=== PATIENT | female | born 1980 | race Caucasian/White ===

== ENCOUNTER 2018-07-30 06:00 | Inpatient (IN) | payer BC ==
[2018-07-30] VITALS (40 sets, daily range): BP systolic 98–139; BP diastolic 4–91
[~2018-07-30 06:00] MED LIST: PREN-53 PO
--- OUTSIDE RECORDS SUMMARY | 2018-07-30 06:08 | XMS REPORT | Continuity of Care Document ---
Author Author [facility] Address Unknown Phone Unavailable Allergies Active Description Code Type Severity Reaction Onset Reported/Identified Relationship to Patient Clinical Status Yes No Known Drug Allergies [id number] Drug Allergy Unknown N/A 07/02/2018 Medications There is no data. Problems Date Dx Coded Attending Type Code Diagnosis Diagnosed By 03/13/2018 FRANCES OLGUIN MD, Ot Z36.89 ENCOUNTER FOR OTHER SPECIFIED 03/13/2018 FRANCES OLGUIN MD, Ot Z3A.20 20 WEEKS GESTATION OF 03/18/2018 FRANCES OLGUIN MD, Ot Z36.89 ENCOUNTER FOR OTHER SPECIFIED 03/18/2018 FRANCES OLGUIN MD, Ot Z3A.20 20 WEEKS GESTATION OF 03/27/2018 FRANCES OLGUIN MD, Ot Z36.89 ENCOUNTER FOR OTHER SPECIFIED 03/27/2018 FRANCES OLGUIN MD, Ot Z3A.20 20 WEEKS GESTATION OF 07/02/2018 FRANCES OLGUIN MD, Ot O99.89 OTH DISEASES AND CONDITIONS COMPL PREG/C 07/02/2018 FRANCES OLGUIN MD, Ot R10.2 PELVIC AND PERINEAL PAIN 07/02/2018 FRANCES OLGUIN MD, Ot Z3A.36 36 WEEKS GESTATION OF 07/05/2018 FRANCES OLGUIN MD, Ot O99.89 OTH DISEASES AND CONDITIONS COMPL PREG/C 07/05/2018 FRANCES OLGUIN MD, Ot Z3A.36 36 WEEKS GESTATION OF Procedures There is no data. Results There is no data. Encounters ACCT No. Visit Date/Time Discharge Status Pt. Type Provider Facility Loc./Unit Complaint [id number] 02/04/2015 09:23:18 02/04/2015 23:59:59 CLS Outpatient Verito Sol [id number] 10/02/2014 09:14:58 10/02/2014 23:59:59 CLS Outpatient Emily Barrios [id number] 09/28/2014 10:47:17 09/28/2014 23:59:59 CLS Outpatient Emily Barrios [id number] 08/07/2014 09:59:45 08/07/2014 23:59:59 CLS Outpatient Verito Sol [id number] 07/02/2018 17:52:00 07/02/2018 19:00:00 DIS Outpatient FRANCES OLGUIN MD [facility] WSo CONTRACTIONS [id number] 03/12/2018 11:53:00 03/12/2018 23:59:59 CLS Outpatient FRANCES OLGUIN MD [facility] RAD SURVEY
[2018-07-30] MEDS ORDERED: OXYTOCIN/NORMAL SALINE 500 ML IV ONE (07:16)
[2018-07-30] MEDS ORDERED: D5 LR IV SOLUTION 1,000 ML IV ONE (07:17)
[2018-07-30] MEDS ORDERED: D5 LR IV SOLUTION 1,000 ML IV SCH (07:27)
[2018-07-30] MEDS ORDERED: OXYTOCIN/NORMAL SALINE 500 ML IV SCH ×2 (07:27→13:47)
--- NOTE | 2018-07-30 07:27 | History & Physical-OB ---
OB - Chief Complaint & HPI Date/Time Date of Admission: Date of Admission: Jul 30, 2018 at 06:04 Time Seen by Provider: 07:10 Chief Complaint/History OB-Reason for Admission/Chief: Induction of Labor Hx : 3 Hx Para: 3 Expected Date of Delivery: Jul 28, 2018 Gestational Age in Weeks: 40 Gestational Age in Days: 2 Admission Nurse Assessment Rev: Yes History of Labs GBS negative Allergies and Home Medications Allergies Coded Allergies: No Known Drug Allergies (Unverified , 07/02/18) Home Medications Gvb212/Iron Fumarate/FA/Dss 1 Each Tablet, 1 EACH PO DAILY, (Reported) Patient Home Medication List Home Medication List Reviewed: Yes OB - History Hx of Present Care: Yes Ultrasounds: Normal mid trimester US Obstetrical Complications: None Medical Complications: None Patient Past Medical History no chronic medical problems OB - Admission Exam Physical Exam HEENT: Moist Membranes Heart: Rhythm Normal Lungs: Clear Abdomen: Gravid Cervical Dilatation: 1cm Effacement: 50% Station: -3 Membranes: Intact Heart Rate: 140's Accelerations: Accelerations Present Short Term Variability: Present Care Transition Coordinator Variability: Average (6-25) Contractions on Admission: >10 Minutes Apart Intensity: Mild Burgess Scoring Tool (Modified) Dilation (cm): 1-2cm (1) Effacement (%): 31-51% (1) Descent/Station: -3 (0) Cervix Consistency: Soft (2) Cervix Position: Posterior (0) Add 1 point for: Each previous vaginal delivery (1) Burgess Score: 6 OB - Assessment/Plan/Diagnosis Assessment Assessment: induction of labor Admission Dx 1. IUP at 40 weeks. Admission Status: Inpatient Order (span 2 midnights) Reason for Inpatient Admission: L&D Plan Plan: Induction Induction Method: AROM Other Plan -epidural planned -pitocin as necessary FRANCES OLGUIN MD Jul 30, 2018 07:27
[2018-07-30 07:35] LABS: BASOPHILS % (AUTO) 0 % (0-10); EOSINOPHILS # (AUTO) 0.1 10^3/uL (0.0-0.3); EOSINOPHILS % (AUTO) 1 % (0-10); HEMATOCRIT 35 % (35-52); HEMOGLOBIN 11.7 G/DL (11.5-16.0); LYMPHOCYTES # (AUTO) 1.3 X 10^3 (1.0-4.0); LYMPHOCYTES % (AUTO) 18 % (12-44); MEAN CORPUSCULAR HEMOGLOBIN 30 PG (25-34); MEAN CORPUSCULAR HGB CONC 34 G/DL (32-36); MEAN CORPUSCULAR VOLUME 89 FL (80-99); MEAN PLATELET VOLUME 11.7 FL (7.4-10.4); MONOCYTES # (AUTO) 0.5 X 10^3 (0.0-1.0); MONOCYTES % (AUTO) 7 % (0-12); NEUTROPHILS # (AUTO) 5.3 X 10^3 (1.8-7.8); NEUTROPHILS % (AUTO) 73 % (42-75); PLATELET COUNT 174 10^3/uL (130-400); RED BLOOD COUNT 3.92 10^6/uL (4.35-5.85); RED CELL DISTRIBUTION WIDTH 13.4 % (10.0-14.5); WHITE BLOOD COUNT 7.2 10^3/uL (4.3-11.0)
[2018-07-30] MEDS ORDERED: LACTATED RINGERS 1,000 ML IV ONE ×2 (08:43→10:10)
[2018-07-30] MEDS ORDERED: SUFENTA 0.6MCG/ML BUPIVA 0.125 100 ML ONE (09:23)
[2018-07-30] MEDS ORDERED: fentaNYL INJECTION 100 MCG/2 ML AMP ONE (09:40)
[2018-07-30] MEDS ORDERED: BUPIVACAINE 0.25% 30 ML (SENSORCAINE) VIAL ONE (09:40)
[2018-07-30] MEDS ORDERED: EPIDURAL (SUFENTA 0.6MCG/ML BUPIVA 0.125%) 100 ML BAG EPI SCH (10:15)
[2018-07-30] MEDS ORDERED: NALOXONE 0.4 MG/ML 1 ML (NARCAN) VIAL IV PRN (10:15)
[2018-07-30] MEDS ORDERED: CATHETER FLUSH 10 ML SYR IV PRN (10:15)
--- NOTE | 2018-07-30 13:51 | OB Labor & Delivery Record ---
L&D History Date of Service Date of Service: Jul 30, 2018 History Expected Date of Delivery: Jul 27, 2018 Gestational Age in Weeks: 40 Hx : 3 Hx Para: 3 Complications Events: Routine care Operative Indications (Cesarea: N/A-Vaginal Delivery Intrapartal Events: None Other Complications slight meconium L&D Stage1 Stage One Onset of Labor - Date: Jul 30, 2018 Onset of Labor - Time: 07:10 Monitors and Tracing Monitor Mode: Internal Heart Rate: 130 Monitor Accelerations: Uniform Monitor Decelerations: Variable Station: -1 Senior Living Variability: Average (6-10) Short Term Variability: Present Presentation: Vertex Vital Signs VS - Last 72 Hours, by Label 07/30/18 07/30/18 07/30/18 07/30/18 07:15 07:25 07:40 07:55 Temp 98.0 Pulse 75 79 75 66 Resp 18 18 18 18 B/P (MAP) 115/76 (89) 115/77 (90) 121/71 (88) 113/72 (86) O2 Delivery Room Air Room Air Room Air Room Air 07/30/18 07/30/18 07/30/18 07/30/18 08:10 08:25 08:40 08:55 Pulse 77 81 78 65 Resp 18 18 18 18 B/P (MAP) 111/71 (84) 116/67 (83) 139/91 (107) 130/66 (87) O2 Delivery Room Air Room Air Room Air Room Air 07/30/18 07/30/18 07/30/18 07/30/18 09:10 09:25 09:40 09:45 Pulse 64 63 75 76 Resp 18 18 18 18 B/P (MAP) 115/69 (84) 113/67 (82) 121/72 (88) 129/73 (91) Pulse Ox 98 O2 Delivery Room Air Room Air Room Air Room Air 07/30/18 07/30/18 07/30/18 07/30/18 09:50 09:55 10:00 10:05 Pulse 83 75 69 68 Resp 18 18 18 18 B/P (MAP) 123/81 (95) 119/64 (82) 112/64 (80) Pulse Ox 100 100 99 100 O2 Delivery Room Air Room Air Room Air Room Air 07/30/18 07/30/18 07/30/18 9/18/18 10:10 10:15 10:20 10:25 Temp 98.5 Pulse 64 76 75 69 Resp 18 20 20 18 B/P (MAP) 112/57 (75) 111/65 (80) 100/55 (70) 106/54 (71) Pulse Ox 98 98 94 O2 Delivery Room Air Room Air Room Air Room Air 07/30/18 07/30/18 07/30/18 07/30/18 10:30 10:40 11:00 11:15 Pulse 62 67 56 57 Resp 18 18 18 18 B/P (MAP) 117/59 (78) 104/59 (74) 99/57 (71) Pulse Ox 98 98 97 97 O2 Delivery Room Air Room Air Room Air 07/30/18 07/30/18 07/30/18 07/30/18 11:30 11:45 12:00 12:15 Pulse 60 62 59 59 Resp 18 18 B/P (MAP) 102/58 (73) 98/59 (72) 111/63 (79) 118/64 (82) Pulse Ox 98 99 99 100 O2 Delivery Room Air Room Air Room Air Room Air Signs of Distress by FHT Signs of Distress no Rupture of Membranes Spontaneous Ruture of Membrane: No Amniotic Membrane Rupture Time: 0714 Amniotic Membrane Fluid Desc.: Meconium Stained Induction/Anesthesia Epidural Cath Placement - Time: 0955 L&D Stage2 Stage Two Stage II Date: Jul 30, 2018 Stage II Time: 01:19 Monitors and Tracing Monitor Mode: Internal Heart Rate: 130 Monitor Accelerations: Uniform Monitor Decelerations: Late (only 1 episode otherswise normal reactive) Alteration Tailor Apprentice Variability: Average (6-10) Short Term Variability: Present Position: Left Occiput Anterior Signs of Distress by FHT Signs of Distress no Cord Descript/Complications Cord Vessel Description: 3 Vessels Delivery Type Delivery Method: Spontaneous Vaginal Anterior Shoulder: Left Episiotomy/Perineal Laceration Laceraction(s)/Extensions: No Condition of Delivery 1 minute Comment: 8 5 minute Comment: 9 Condition of Condition of Infant: Living Exam: No Observed Abnormalities Resuscitation Resuscitation: N/A - Spontaneous Resp L&D Stage3 Stage Three Stage III Date: Jul 30, 2018 Stage III Time: 01:23 Pictocin Pitocin Administration mu/min: 6 Pitocin ml/hr: 6 Pitocin Administration Comment: pitocin increased Placenta Delivery Placenta Delivery: Spontaneous Delivery Summary Summary Estimated blood loss (mL): 150 Condition of Delivery Examined: Cervix Examined Post Hemorrhage: No Intervention Required none other than fundal massage FRANCES OLGUIN MD Jul 30, 2018 13:51
[2018-07-30] MEDS ORDERED: CATHETER FLUSH 10 ML SYR IV SCH (14:00)
[2018-07-30] MEDS ORDERED: WITCH HAZEL(TUCKS) 40 EA JAR TOP PRN (14:00)
[2018-07-30] MEDS ORDERED: TETANUS,DIPTH,PERTUSS P/F (BOOSTRIX) 0.5 ML VIAL IM ONE (14:00)
[2018-07-30] MEDS ORDERED: BENZOCAINE/MENTHOL (DERMOPLAST) 56 ML CAN TP PRN (14:00)
[2018-07-30] MEDS ORDERED: HYDROcodone/APAP 5 MG/325 MG (LORTAB) TAB PO PRN (14:00)
[2018-07-30] MEDS ORDERED: MEASLES,MUMPS,RUBELLA 1 EA INJ SQ ONE (14:00)
[2018-07-30] MEDS ORDERED: FLU QUADRIvalent (5+ YOA) 2018-2019 (AFLURIA) 0.5 ML IM ONE (15:30)
[2018-07-30] MEDS: IBUPROFEN 600 MG (MOTRIN) TAB PO SCH ×2 (15:40→21:38)
[2018-07-30] MEDS: CATHETER FLUSH 10 ML SYR IV SCH ×2 (20:40→21:39)
[2018-07-31] VITALS: BP 99/59
[2018-07-31] MEDS: IBUPROFEN 600 MG (MOTRIN) TAB PO SCH ×2 (03:30→11:37)
[2018-07-31 04:00] VITALS: BP 113/67
[2018-07-31] MEDS: CATHETER FLUSH 10 ML SYR IV SCH (06:39)
[2018-07-31 08:10] VITALS: BP 103/66
--- NOTE | 2018-07-31 10:36 | Discharge Inst-Women's Service ---
Discharge Inst-Women's Serv Depart Medication/Instructions New, Converted or Re-Newed RX: Other Consults/Follow Up Additional Follow Up: Yes (Dr Olguin in 6 weeks) Activity Activity: Activity as Tolerated Driving Instructions: You May Drive Nothing Inside Vagina: No [place] (for 6 weeks.) Diet Discharge Diet: Regular Diet Return to The Hospital For: as below Symptoms to Report to : Bleeding Excessive, Pain Increased, Fever Over 101 Degrees F, Vaginal Discharge Foul For Any Problems or Questions: Contact Your Physician FRANCES OLGUIN MD Jul 31, 2018 10:36
--- NOTE | 2018-07-31 10:54 | Discharge Summary ---
Diagnosis/Chief Complaint Date of Admission Jul 30, 2018 at 06:04 Date of Discharge July 30, 2018 Discharge Date: Jul 31, 2018 Discharge Time: 07:50 Admission Diagnosis Admission Diagnosis 1. IUP at 40 weeks. Discharge Diagnosis 1. IUP at 40 weeks. Reason Hospital Visit 37-year-old multiparous female currently at 40 weeks gestation presents for induction of labor. She was noted to have an uncomplicated course. Her GBS status is negative. She is induced due to term gestation and physical location from home with history of quick deliveries. Discharge Summary-OBS Procedures 1. Epidural per anesthesia 2. Discharge Physical Examination Allergies: Coded Allergies: No Known Drug Allergies (Unverified , 07/02/18) Vitals & I&Os Vital Signs Date Time Temp Pulse Resp B/P (MAP) Pulse Ox O2 Delivery O2 Flow Rate FiO2 07/31/18 04:00 97.9 85 18 113/67 (82) 99 Room Air General Appearance: No Acute Distress Respiratory: Clear to Auscultation Cardiovascular: Regular Rate Abdominal: Soft Skin: No Rashes Hospital Course Following admission in the morning of July 30 she underwent amniotomy with placement of scalp electrode. Fluid was noted to be clear. She did receive epidural per anesthesia. Patient tolerated labor well and required Pitocin augmentation and low-dose. Ultimately she went on to deliver a term viable male at 11 30 with Apgars of 8 at 1 minute and 9 at 5 minutes. There was no episiotomy. See labor and delivery note for full details. Following delivery patient underwent routine care orders. She was noted to have hemoglobin on the day of admission of 11.7. Patient was ambulatory and was without any shortness of breath. There was no leg pain. She tolerated regular diet and was felt ready for dismissal during the afternoon of July 31, 2018. She will follow up in 6 weeks. Discharge Instructions to patient/family Please see electronic discharge instructions given to patient. Discharge Medications Reviewed and agree with Discharge Medication list on patient's Discharge Instruction sheet Clinical Quality Measures DVT/VTE Risk/Contraindication: Risk Factor Score Per Nursin RFS Level Per Nursing on Admit: 1=Low/No VTE PPX FRANCES OLGUIN MD Jul 31, 2018 10:54
--- NOTE | 2018-07-31 15:22 | Anesthesia-Regional Post-Op ---
Regional Patient Condition Mental Status: Alert, Oriented x3 Circulation: Same as Pre-Op Headache: Absent Sensation: Full Recovery Motor Block: Absent Post Op Complications Complications None Follow Up Care/Instructions Patient Instructions None needed. Anesthesia/Patient Condition Patient is doing well, no complaints, stable vital signs, no apparent adverse anesthesia problems. CLAUDIA AG DO Jul 31, 2018 15:22
== END 2018-07-31 14:30 | disposition home or self-care (01) | DRG 775 ==
LOC: LDRP 06:04
PROVIDERS: ADMIT Family Medicine; ATTEND Family Medicine
PROC: 10E0XZZ Delivery of Products of Conception, External Approach (ICD-10-PCS; principal; 2018-07-30)
PROC: 10907ZC Drainage of Amniotic Fluid, Therapeutic from Products of Conception, Via Natural or Artificial Opening (ICD-10-PCS; 2018-07-30)
DX: O77.0 Labor and delivery complicated by meconium in amniotic fluid (principal); Z3A.40 40 weeks gestation of pregnancy; Z37.0 Single live birth
CPT/HCPCS: 36415; 85025; 86850; 86900; 86901

== ENCOUNTER → 2021-07-01 | Outpatient (CLI) | payer OTHER ==
--- NOTE | 2021-07-01 10:37 | Diagnostic Imaging Report ---
PROCEDURE: US OB SINGLE FETUS <14 WKS. TECHNIQUE: Multiple real-time grayscale images were obtained over the gravid uterus in various projections. INDICATION: Evaluate viability. There is an intrauterine gestational sac containing a pole consistent with 10 weeks 3 days gestation. heart rate was recorded at 165 bpm. Placenta appears to be developing anteriorly. No rosario-gestational sac hemorrhage is detected. Adnexal evaluation demonstrates 2.2 cm corpus luteal cyst on the left. There is no free fluid. IMPRESSION: Single live IUP 10 weeks 3 days gestation with an estimated date of confinement sonographically of 01/24/2022. Dictated by: Dictated on workstation # [id number]
== END ==
LOC: RAD 10:00
PROVIDERS: ATTEND Obstetrics & Gynecology
DX: O36.80X9 Pregnancy with inconclusive fetal viability, other fetus (principal); Z3A.10 10 weeks gestation of pregnancy
CPT/HCPCS: 76801

== ENCOUNTER → 2021-09-28 | Outpatient (CLI) | payer OTHER ==
--- NOTE | 2021-09-28 12:52 | Diagnostic Imaging Report ---
INDICATION: Supervision of normal . Anatomy scan. TECHNIQUE: Multiple real-time grayscale images were obtained over the gravid uterus. COMPARISON: 07/01/2021. FINDINGS: CLINICAL DATES: Gestational age 23 weeks, 1 days, with an GLORIA of 01/24/2022 Number: Single live intrauterine Presentation: Cephalic Placenta: Posterior and low-lying. Amniotic Fluid: ROBERT is within normal limits. Heart Rate: 142 bpm Cerebellum: visualized Lateral ventricles: visualized Cavum septum pellucidum: visualized Nasal Bone: visualized Face: visualized Stomach: visualized Kidneys: visualized Bladder: visualized Three vessel cord: visualized Cord insertion: visualized 4 chamber heart: visualized outflow tracts: visualized Spine, upper: visualized Spine, lower: visualized Upper extremities: visualized Lower extremities: visualized Hands: Visualized, however not all fingers are well seen. Feet: Visualized, however not all toes are well seen. Cervical length measures 5.5 cm. The bilateral adnexa are unremarkable without evidence of mass or free fluid. Biometrical measurements are as follows: Biparietal 5.45 cm, age 22 weeks 5 days. Head circumference 20.75 cm, age 22 weeks 6 days. Abdominal circumference 18.40 cm, age 23 weeks 2 days. Femur length 3.94 cm, age 22 weeks 5 days. Sonographic estimate age: 23 weeks 0 days. Sonographic estimated date of delivery: 01/25/2022. Estimated Weight: 549 gm (+/- 80 gm). LMP percentile: 33%. heart rate: 142 beats per minute. number: 1 of 1. IMPRESSION: 1. Single live intrauterine at approximately 23 weeks, 0 days, with an GLORIA of 01/25/2022. These are within range clinical dates. 2. No abnormalities are seen at this time. 3. Several low lying placenta. Recommend attention on follow-up. Dictated by: Dictated on workstation # [id number]
== END ==
LOC: RAD 10:02
PROVIDERS: ATTEND Obstetrics & Gynecology
DX: Z34.92 Encounter for supervision of normal pregnancy, unspecified, second trimester (principal); Z36.2 Encounter for other antenatal screening follow-up; Z3A.23 23 weeks gestation of pregnancy
CPT/HCPCS: 76805

== ENCOUNTER → 2021-12-13 | Outpatient (CLI) | payer BC, OTHER ==
--- NOTE | 2021-12-13 11:57 | Diagnostic Imaging Report ---
INDICATION: Follow-up of low-lying placenta. TECHNIQUE: Multiple real-time grayscale images were obtained over the gravid uterus. COMPARISON: 09/28/2021, ultrasound. FINDINGS: There is single live intrauterine fetus which is vertex and activity. Amniotic fluid index is 13 cm. The placenta is posterior. There has been cephalad migration of the placenta since previous exam. The inferior tip of the placenta is now 5 cm from the cervical os. heart rate is 152 BPM. IMPRESSION: Limited examination shows cephalad migration of the placenta. There is no longer a low-lying marginal placenta. Dictated by: Dictated on workstation # [id number]
== END ==
LOC: RAD 10:00
PROVIDERS: ATTEND Obstetrics & Gynecology
DX: O44.42 Low lying placenta NOS or without hemorrhage, second trimester (principal); Z3A.00 Weeks of gestation of pregnancy not specified
CPT/HCPCS: 76816

== ENCOUNTER 2022-01-24 07:00 | Inpatient (IN) | payer BC ==
[2022-01-24] VITALS (63 sets, daily range): BP systolic 87–134; BP diastolic 50–85
[~2022-01-24] VITALS: Ht 71.1 cm; Wt 162.6 kg
[2022-01-24] MEDS ORDERED: MINERAL OIL CONCENTRATE 99.9% 15 ML UDC TOP PRN (07:45)
[2022-01-24] MEDS: D5 LR IV SOLUTION 1,000 ML IV SCH ×2 (08:02→14:56)
[2022-01-24 08:24] LABS: BASOPHILS # (AUTO) 0.1 10^3/uL (0.0-0.1); BASOPHILS % (AUTO) 1 % (0-10); EOSINOPHILS # (AUTO) 0.3 10^3/uL (0.0-0.3); EOSINOPHILS % (AUTO) 4 % (0-10); HEMATOCRIT 34 % (35-52); HEMOGLOBIN 10.7 g/dL (11.5-16.0); LYMPHOCYTES # (AUTO) 1.2 10^3/uL (1.0-4.0); LYMPHOCYTES % (AUTO) 18 % (12-44); MEAN CORPUSCULAR HEMOGLOBIN 27 pg (25-34); MEAN CORPUSCULAR HGB CONC 31 g/dL (32-36); MEAN CORPUSCULAR VOLUME 85 fL (80-99); MEAN PLATELET VOLUME 10.8 fL (9.0-12.2); MONOCYTES # (AUTO) 0.4 10^3/uL (0.0-1.0); MONOCYTES % (AUTO) 6 % (0-12); NEUTROPHILS # (AUTO) 4.4 10^3/uL (1.8-7.8); NEUTROPHILS % (AUTO) 70 % (42-75); PLATELET COUNT 162 10^3/uL (130-400); WHITE BLOOD COUNT 6.3 10^3/uL (4.3-11.0)
[2022-01-24] MEDS ORDERED: OXYTOCIN PRE-MIX DRIP 500 ML IV SCH ×2 (08:45)
[2022-01-24] MEDS ORDERED: LACTATED RINGERS 1,000 ML IV SCH ×2 (08:45→14:30)
[2022-01-24] MEDS ORDERED: fentaNYL 2 mcg/ml BUPIVA 0.125 100 ML ONE (08:56)
[2022-01-24] MEDS ORDERED: fentaNYL INJ 100 MCG/2 ML AMP ONE (09:57)
[2022-01-24] MEDS ORDERED: BUPIVACAINE 0.25% 10 ML (SENSORCAINE) VIAL ONE (09:57)
[2022-01-24 11:19] LABS: BILIRUBIN,URINE NEGATIVE (NEGATIVE); CLARITY,URINE CLEAR; COLOR,URINE YELLOW; GLUCOSE, URINE (UA) NEGATIVE (NEGATIVE); KETONES,URINE NEGATIVE (NEGATIVE); LEUKOCYTE ESTERASE ,URINE 1+ (NEGATIVE); NITRITE,URINE NEGATIVE (NEGATIVE); PH,URINE 7.5 (5-9); PROTEIN,URINE NEGATIVE (NEGATIVE)
[2022-01-24 11:29] LABS: BACTERIA,URINE TRACE /HPF; SQUAMOUS EPITHELIAL CELL,UR 0-2 /HPF
[2022-01-24] MEDS ORDERED: CATHETER FLUSH 10 ML SYR IV SCH ×2 (14:00→22:00)
[2022-01-24] MEDS ORDERED: diphenhydrAMINE 50 MG/ML INJ (BENADRYL) IV PRN (14:30)
[2022-01-24] MEDS ORDERED: EPIDURAL (fentaNYL 2 MCG/ML BUPIVA 0.125%)100 ML BAG EPI PRN (14:30)
[2022-01-24] MEDS ORDERED: ONDANSETRON 4 MG/2 ML (SDV) Z0FRAN IV PRN (14:30)
[2022-01-24] MEDS ORDERED: METOCLOPRAMIDE INJ 10 MG/2 ML (REGLAN) IV PRN (14:30)
[2022-01-24] MEDS ORDERED: NALOXONE 0.4 MG/ML 1 ML (NARCAN) VIAL IV PRN ×3 (14:30→18:15)
[2022-01-24] MEDS ORDERED: fentaNYL 2 mcg/ml BUPIVA 0.125 100 ML EPI PRN (14:45)
--- NOTE | 2022-01-24 17:56 | OB Labor & Delivery Record ---
Vag Delivery Note Vag Delivery Note Date of Delivery: 01/24/22 Preoperative Diagnosis: Kassi Nathan is a 40 /Para 6/5 ,Gestational Age 40 weeks, advanced maternal age Postoperative Diagnosis: Same Surgeon: STEVIE MAJANO Senior Financial Consultant: Darryn cleveland MS IV Anesthesia: epidural Delivery Type: vaginal Findings: Viable male infant, apgars 9/9, weight pending Lacerations: none Intact placenta with 3 vessel cord. No nuchal cord, body cord or shoulder dystocia Estimated Blood Loss: 100 ml Complications: None Condition: Stable Description of Procedure: The patient is a 40 /Para 6/5 ,Gestational Age 40 weeks, advanced maternal age for induction of labor due to advanced maternal age at term. She was admitted and informed consent was obtained. Her labor course was remarkable for AROM, Hand/arm presentation that was reduced, augmentation with pitocin. She progressed to complete dilatation and began to push. She was then set up for delivery. The infant's head was delivered atraumatically in the SHANTANU position. The shoulders and remainder of the 's body were then delivered without difficulty. Upon delivery, the head was held below the level of the perineum and the mouth and nares were bulb suctioned. The cord was doubly clamped and cut and the infant was handed off to the pediatric staff. An intact placenta with 3-vessel cord delivered via Santosh and there was found to be minimal bleeding.~ Vigorous fundal massage was performed and the fundus was found to be firm. IV oxytocin was given. Examination of the vagina and perineum revealed no laceration. Following the repair, sponge, instrument and needle counts were correct. Mom and baby were both in stable condition in the labor suite. Vitals - Labs Vital Signs - I&O Vital Signs Date Time Temp Pulse Resp B/P (MAP) Pulse Ox O2 Delivery O2 Flow Rate FiO2 01/24/22 11:51 64 18 94/58 (70) 99 Room Air 01/24/22 11:46 75 18 101/55 (70) 100 Room Air 01/24/22 11:43 75 18 116/61 (79) 100 Room Air 01/24/22 11:36 73 18 109/62 (78) 100 Room Air 01/24/22 11:31 63 18 101/62 (75) 100 Room Air 01/24/22 11:26 61 18 109/69 (82) 100 Room Air 01/24/22 11:22 60 18 103/65 (78) 100 Room Air 01/24/22 11:16 81 18 108/59 (75) 100 Room Air 01/24/22 11:12 66 18 105/60 (75) 100 Room Air 01/24/22 11:05 68 18 91/50 (64) 100 Room Air 01/24/22 11:00 65 18 103/57 (72) 98 Room Air 01/24/22 10:55 72 18 109/53 (71) 99 Room Air 01/24/22 10:50 72 18 87/50 (62) 99 Room Air 01/24/22 10:44 85 18 90/54 (66) 98 Room Air 01/24/22 10:41 77 18 110/59 (76) 98 Room Air 01/24/22 10:38 81 18 105/58 (74) 98 Room Air 01/24/22 10:35 82 18 106/58 (74) 99 Room Air 01/24/22 10:32 83 18 113/65 (81) 98 Room Air 01/24/22 10:29 86 18 118/69 (85) 98 Room Air 01/24/22 10:25 67 18 115/63 (80) 100 Room Air 01/24/22 10:22 75 18 113/66 (82) 100 Room Air 01/24/22 10:19 71 18 112/62 (79) 100 Room Air 01/24/22 10:16 73 18 118/68 (85) 100 Room Air 01/24/22 10:13 80 18 128/69 (88) 100 Room Air 01/24/22 10:10 85 18 129/68 (88) 99 Room Air 01/24/22 10:03 36.8 83 18 119/71 (87) 100 Room Air 01/24/22 09:45 68 18 116/70 (85) Room Air 01/24/22 09:30 68 18 112/74 (87) Room Air 01/24/22 09:00 80 18 117/71 (86) Room Air 01/24/22 08:30 70 18 112/66 (81) Room Air 01/24/22 08:00 75 18 114/73 (87) 01/24/22 07:30 36.6 71 18 119/74 (89) 100 Room Air 01/24/22 07:30 36.6 71 18 100 Room Air Labs Laboratory Tests 01/24/22 08:15: White Blood Count 6.3, Red Blood Count 4.04, Hemoglobin 10.7L, Hematocrit 34L, Mean Corpuscular Volume 85, Mean Corpuscular Hemoglobin 27, Mean Corpuscular Hemoglobin Concent 31L, Red Cell Distribution Width 15.9H, Platelet Count 162, Mean Platelet Volume 10.8, Immature Granulocyte % (Auto) 1, Neutrophils (%) (Auto) 70, Lymphocytes (%) (Auto) 18, Monocytes (%) (Auto) 6, Eosinophils (%) (Auto) 4, Basophils (%) (Auto) 1, Neutrophils # (Auto) 4.4, Lymphocytes # (Auto) 1.2, Monocytes # (Auto) 0.4, Eosinophils # (Auto) 0.3, Basophils # (Auto) 0.1, Immature Granulocyte # (Auto) 0.1 01/24/22 08:45: Urine Color YELLOW, Urine Clarity CLEAR, Urine pH 7.5, Urine Specific [place] 1.010L, Urine Protein NEGATIVE, Urine Glucose (UA) NEGATIVE, Urine Ketones NEGATIVE, Urine Nitrite NEGATIVE, Urine Bilirubin NEGATIVE, Urine Urobilinogen 0.2, Urine Leukocyte Esterase 1+H, Urine RBC (Auto) NEGATIVE, Urine RBC NONE, Urine WBC 2-5, Urine Squamous Epithelial Cells 0-2, Urine Crystals NONE, Urine Bacteria TRACE, Urine Casts NONE, Urine Mucus NEGATIVE, Urine Culture Indicated NO STEVIE MAJANO DO Jan 24, 2022 17:56
--- NOTE | 2022-01-24 17:57 | History & Physical-OB ---
OB - Chief Complaint & HPI Date/Time Date of Admission: Date of Admission: Jan 24, 2022 at 07:05 Date seen by a Provider: Jan 24, 2022 Time Seen by a Provider: 07:30 Chief Complaint/History OB-Reason for Admission/Chief: Induction of Labor Hx : 6 Hx Para: 5 Expected Date of Delivery: Jan 24, 2022 Gestational Age in Weeks: 40 Gestational Age in Days: 0 Indication for induction: other (advanced maternal age, distance from hospital) Other reason for admission: Patient was admitted at 40 weeks due to Advanced maternal age, term and distance from hospital. She had an uncomplicated course. testing was initiated at 35 weeks due to Advanced maternal age. she had declined NiPT and QS. she had been referred to [facility] and this appointment was cancelled. Patient then declined to return to the appointment due to distance. O+/-\ VDRL NR HIV - HBsAg - Hep C - Rub I GBS - Admission Nurse Assessment Rev: Yes Allergies and Home Medications Allergies Coded Allergies: No Known Drug Allergies (Unverified , 07/02/18) Patient Home Medication List Home Medication List Reviewed: Yes Isn766/Iron Fumarate/FA/Dss ( 19 Tablet) 1 Each Tablet, 1 EACH PO DAILY, (Reported) Entered as Reported by: MAX MAURICIO on 07/02/18 1693 Last Action: Reviewed OB - History Hx of Present Ultrasounds: Normal mid trimester US Obstetrical Complications: None Medical Complications: None Information Induced Hypertension: No Maternal Gestational Diabetes: No Hemorrhage: No Obstetrical History Hx : 6 Hx Para: 5 Hx # Term Pregnancies: 5 Hx # Pregnancies: 0 Number of Living Children: 5 Hx Termination: No Hx Total # of Abortions (Spona: 1 Hx Multiple Gestation: Yes Hx Ectopic : No Hx Stillbirth: No Hx Complication: No Hx Induced Hypertens: No Hx Maternal Gestational Diabet: No Hx Hemorrhage: No Delivery History Hx Dystocia: No Hx Forceps Assisted Delivery: No Hx Vacuum Extraction Assisted: No Hx Distress: No Hx Large For Gestational Age I: No Hx Small for Gestational Age I: No Hx Section: No Patient Past Medical History no chronic medical problems Social History/Family History Alcohol Use: Denies Use Recreational Drug Use: No Smoking Cessation: Never smoker Immunizations Influenza Vaccine Up-to-Date: No; Not Current (declined) Hepatitis A: Yes Hepatitis B: Yes Tetanus Booster (TDap): Unknown (declined) Rubella: immune RPR/VDRL: Negative GBS Status: Negative HBsAG: Negative OB - Admission Exam Physical Exam Vitals: Vital Signs 01/24/22 01/24/22 10:03 11:51 Temp 36.8 Pulse 64 Resp 18 B/P (MAP) 94/58 (70) Pulse Ox 99 O2 Delivery Room Air Heart: Rhythm Normal Lungs: Clear Abdomen: Gravid Extremities: Normal Reflexes: Normal Cervical Dilatation: 3cm Effacement: 50% Station: -3 Membranes: Intact Heart Rate: 120's Accelerations: Accelerations Present Decelerations: No Decelerations Short Term Variability: Present Mechanical Test Engineer Variability: Average (6-25) Contractions on Admission: 6-10 Minutes Apart Labs Laboratory Tests Test 01/24/22 08:15 01/24/22 08:45 Range/Units White Blood Count 6.3 4.3-11.0 10^3/uL Red Blood Count 4.04 3.80-5.11 10^6/uL Hemoglobin 10.7 L 11.5-16.0 g/dL Hematocrit 34 L 35-52 % Mean Corpuscular Volume 85 80-99 fL Mean Corpuscular Hemoglobin 27 25-34 pg Mean Corpuscular Hemoglobin Concent 31 L 32-36 g/dL Red Cell Distribution Width 15.9 H 10.0-14.5 % Platelet Count 162 130-400 10^3/uL Mean Platelet Volume 10.8 9.0-12.2 fL Immature Granulocyte % (Auto) 1 % Neutrophils (%) (Auto) 70 42-75 % Lymphocytes (%) (Auto) 18 12-44 % Monocytes (%) (Auto) 6 0-12 % Eosinophils (%) (Auto) 4 0-10 % Basophils (%) (Auto) 1 0-10 % Neutrophils # (Auto) 4.4 1.8-7.8 10^3/uL Lymphocytes # (Auto) 1.2 1.0-4.0 10^3/uL Monocytes # (Auto) 0.4 0.0-1.0 10^3/uL Eosinophils # (Auto) 0.3 0.0-0.3 10^3/uL Basophils # (Auto) 0.1 0.0-0.1 10^3/uL Immature Granulocyte # (Auto) 0.1 0.0-0.1 10^3/uL Urine Color YELLOW Urine Clarity CLEAR Urine pH 7.5 5-9 Urine Specific Organ 1.010 L 1.016-1.022 Urine Protein NEGATIVE NEGATIVE Urine Glucose (UA) NEGATIVE NEGATIVE Urine Ketones NEGATIVE NEGATIVE Urine Nitrite NEGATIVE NEGATIVE Urine Bilirubin NEGATIVE NEGATIVE Urine Urobilinogen 0.2 < = 1.0 MG/DL Urine Leukocyte Esterase 1+ H NEGATIVE Urine RBC (Auto) NEGATIVE NEGATIVE Urine RBC NONE /HPF Urine WBC 2-5 /HPF Urine Squamous Epithelial Cells 0-2 /HPF Urine Crystals NONE /LPF Urine Bacteria TRACE /HPF Urine Casts NONE /LPF Urine Mucus NEGATIVE /LPF Urine Culture Indicated NO OB - Assessment/Plan/Diagnosis Assessment Assessment: induction of labor Admission Dx 40 week gestation Advanced maternal age (40) [place] Induction of labor Admission Status: Inpatient Order (span 2 midnights) Reason for Inpatient Admission: Labor Plan Plan: Induction Induction Method: AROM (Anticipate Peds - Rea) STEVIE MAJANO DO Jan 24, 2022 17:57
[2022-01-24] MEDS: OXYTOCIN PRE-MIX DRIP 500 ML IV SCH ×2 (18:10→22:00)
[2022-01-24] MEDS ORDERED: BENZOCAINE/MENTHOL (DERMOPLAST) 56 ML CAN TP PRN (18:15)
[2022-01-24] MEDS ORDERED: WITCH HAZEL(TUCKS) 40 EA JAR TOP PRN (18:15)
[2022-01-24] MEDS ORDERED: MEASLES,MUMPS,RUBELLA 1 EA INJ SQ ONE (18:15)
[2022-01-24] MEDS ORDERED: TETANUS,DIPTH,PERTUSS P/F (BOOSTRIX) 0.5 ML VIAL IM ONE (18:15)
[2022-01-24] MEDS: IBUPROFEN 600 MG (MOTRIN) TAB PO SCH (18:28)
[2022-01-24] MEDS: ACETAMINOPHEN 500 MG TAB (TYLENOL) PO SCH (20:58)
[2022-01-24] MEDS: DOCUSATE SODIUM 100 MG (COLACE) CAP PO SCH (20:58)
[2022-01-25 00:06] VITALS: BP 106/59
[2022-01-25] MEDS: IBUPROFEN 600 MG (MOTRIN) TAB PO SCH ×4 (00:08→14:57)
[2022-01-25 03:50] VITALS: BP 115/60
[2022-01-25 05:15] LABS: BASOPHILS # (AUTO) 0.1 10^3/uL (0.0-0.1); BASOPHILS % (AUTO) 1 % (0-10); EOSINOPHILS # (AUTO) 0.3 10^3/uL (0.0-0.3); EOSINOPHILS % (AUTO) 3 % (0-10); HEMATOCRIT 33 % (35-52); HEMOGLOBIN 10.3 g/dL (11.5-16.0); LYMPHOCYTES # (AUTO) 1.4 10^3/uL (1.0-4.0); LYMPHOCYTES % (AUTO) 14 % (12-44); MEAN CORPUSCULAR HEMOGLOBIN 27 pg (25-34); MEAN CORPUSCULAR HGB CONC 32 g/dL (32-36); MEAN CORPUSCULAR VOLUME 86 fL (80-99); MEAN PLATELET VOLUME 11.1 fL (9.0-12.2); MONOCYTES # (AUTO) 0.6 10^3/uL (0.0-1.0); MONOCYTES % (AUTO) 6 % (0-12); NEUTROPHILS % (AUTO) 77 % (42-75); PLATELET COUNT 158 10^3/uL (130-400); WHITE BLOOD COUNT 10.4 10^3/uL (4.3-11.0)
[2022-01-25] MEDS ORDERED: PRENATAL VITAMIN 1 EA TAB PO SCH (07:00)
[2022-01-25] MEDS: DOCUSATE SODIUM 100 MG (COLACE) CAP PO SCH (08:37)
[2022-01-25 08:38] VITALS: BP 114/60
[2022-01-25] MEDS: ACETAMINOPHEN 500 MG TAB (TYLENOL) PO SCH ×2 (08:38→14:57)
[2022-01-25] MEDS ORDERED: IBUP-844 PO (08:49)
[2022-01-25] MEDS ORDERED: ACET-93 PO (08:49)
--- NOTE | 2022-01-25 08:50 | Discharge Inst-Women's Service ---
Discharge Inst-Women's Serv Depart Medication/Instructions New, Converted or Re-Newed RX: Other (OTC) Final Diagnosis 40 week gestation grand multipara advanced maternal age Problems Reviewed?: Yes Consults/Follow Up Additional Follow Up: Yes (6 week post ) Activity Activity: Activity as Tolerated Driving Instructions: You May Drive NO SMOKING: NO SMOKING Nothing Inside Vagina: No Douching, No [place] (4 weeks), No Tampons Diet Discharge Diet: No Restrictions Symptoms to Report to : Swelling Increased, Bleeding Excessive, Pain Increased, Fever Over 101 Degrees F, Vaginal Bleeding Increase, Cramps in Feet or Legs, Vaginal Discharge Foul For Any Problems or Questions: Contact Your Physician STEVIE MAJANO DO Jan 25, 2022 08:50
[2022-01-25] MEDS ORDERED: FERROUS SULF 325 MG (IRON) TAB PO SCH (09:00)
--- NOTE | 2022-01-25 14:07 | Anesthesia-Regional Post-Op ---
Regional Patient Condition Mental Status: Alert, Oriented x3 Circulation: Same as Pre-Op Headache: Absent Sensation: Full Recovery Motor Block: Absent Post Op Complications Complications None Follow Up Care/Instructions Patient Instructions None needed. Anesthesia/Patient Condition Patient is doing well, no complaints, stable vital signs, no apparent adverse anesthesia problems. No complications reported per nursing. VANDANA GEE CRNA Jan 25, 2022 14:07
[2022-01-25 14:57] VITALS: BP 116/67
== END 2022-01-25 19:47 | disposition home or self-care (01) | DRG 807 ==
LOC: LDRP 07:05
PROVIDERS: ADMIT Obstetrics & Gynecology; ATTEND Obstetrics & Gynecology
PROC: 10E0XZZ Delivery of Products of Conception, External Approach (ICD-10-PCS; principal; 2022-01-24)
PROC: 10907ZC Drainage of Amniotic Fluid, Therapeutic from Products of Conception, Via Natural or Artificial Opening (ICD-10-PCS; 2022-01-24)
PROC: 8E0ZXY6 Isolation (ICD-10-PCS; 2022-01-24)
DX: O48.0 Post-term pregnancy (principal); Z37.0 Single live birth; Z3A.40 40 weeks gestation of pregnancy
CPT/HCPCS: 36415; 81000; 85025; 86850; 86900; 86901